=== PATIENT | female | born 1930 | race African-American/Black ===

== ENCOUNTER 2018-07-03 09:53 | Inpatient (IN) | payer MEDICARE, MEDICAID ==
[~2018-07-03] VITALS: Ht 160 cm; Wt 88.5 kg
[2018-07-03] MEDS ORDERED: KETOROLAC 30MG/ML VIAL IV STA (12:01)
[2018-07-03] MEDS ORDERED: SODIUM CHLORIDE 0.9% 1,000 ML IV ONE (12:01)
[2018-07-03] MEDS ORDERED: ALBUTEROL (0.083%) 2.5MG/3ML NEB HHN ONE (12:15)
[2018-07-03 13:11] LABS: CHLORIDE 100 mEq/L (98-107)
[2018-07-03 13:22] LABS: BASOPHILS % 0.5 % (0.0-2.0); EOSINOPHILS % 0.4 % (0.0-5.0); HEMATOCRIT. 53.3 % (36.0-48.0); HEMOGLOBIN. 17.2 g/dL (12.0-16.0); LYMPHOCYTES % 21.1 % (20.0-50.0); MEAN CORPUSCULAR HEMOGLOBIN 29.2 pg (28.0-32.0); MEAN CORPUSCULAR VOLUME 90.5 fL (81.0-99.0); MEAN PLATELET VOLUME 8.7 fl (7.4-10.4); MONOCYTES % 11.1 % (2.0-8.0); NEUTROPHILS % 66.9 % (40.0-76.0); PLATELET 156 x1000/uL (130-400); RED BLOOD CELL COUNT 5.89 mill/uL (4.2-5.4); RED CELL DISTRIBUTION WIDTH 15.4 % (11.6-14.6)
[2018-07-03] MEDS ORDERED: IOHEXOL-300 100 ML BOTTLE ONE (16:01)
[2018-07-03] MEDS ORDERED: LEVOFLOXACIN 750MG PREMIX 150 ML IV ONE (16:30)
[2018-07-03] MEDS ORDERED: ACETAMINOPHEN 325MG TABLET PO PRN ×2 (17:00→21:45)
[2018-07-03 17:22] LABS: CLARITY URINE TURBID (CLEAR); COLOR URINE YELLOW (YELLOW); KETONES URINE TRACE (NEGATIVE); LEUKOCYTE ESTERASE URINE 3+ (NEGATIVE); NITRITE URINE NEGATIVE (NEGATIVE); OCCULT BLOOD URINE 3+ (NEGATIVE); PROTEIN URINE 1+ (NEGATIVE); SPECIFIC GRAVITY URINE 1.043 (1.005-1.030)
[2018-07-03] MEDS ORDERED: LEVOFLOXACIN 500MG PREMIX 100 ML IV SCH (20:15)
[2018-07-03] MEDS ORDERED: ONDANSETRON HCL 4MG/2ML INJ IV PRN (20:15)
[2018-07-03] MEDS ORDERED: MAGNESIUM/ALUMINUM HYDROXIDE/SIMETHICONE 30ML UDC PO PRN (20:15)
[2018-07-03] MEDS ORDERED: ACETAMINOPHEN 650MG/20.3ML UDC GT PRN (20:15)
[2018-07-03] MEDS ORDERED: GUAIFENESIN 200MG/10ML SUGAR FREE UDC PO PRN (20:15)
[2018-07-03] MEDS: DEXT 5%/0.45% NACL 1000ML 1,000 ML IV SCH (20:22)
[2018-07-03] MEDS ORDERED: ATORVASTATIN CALCIUM 40MG TABLET PO SCH (21:00)
[2018-07-03] MEDS ORDERED: OXYBUTYNIN CHLORIDE 5MG TABLET PO SCH (21:00)
[2018-07-03 21:30] VITALS: BP 103/73
[2018-07-03] MEDS ORDERED: ERGO400C MT (23:39)
[2018-07-03] MEDS ORDERED: TIOT18CA3 INH (23:39)
[2018-07-03] MEDS ORDERED: SIMV5TAB53 MT (23:39)
[2018-07-03] MEDS ORDERED: ASPI-1159 MT (23:40)
[2018-07-03] MEDS ORDERED: POLY17PO3 MT (23:40)
[2018-07-04] VITALS: BP 124/89
[2018-07-04] MEDS: IPRATROPIUM/ALBUTEROL 0.5-3(2.5)MG/3ML NEB HHN SCH ×5 (01:16→16:00)
[2018-07-04] MEDS ORDERED: IPRATROPIUM/ALBUTEROL 0.5-3(2.5)MG/3ML NEB ONE (01:20)
[2018-07-04 06:19] LABS: CHLORIDE 104 mEq/L (98-107)
[2018-07-04 06:27] LABS: HDL CHOLESTEROL 38 mg/dL (40-59); LDL CHOLESTEROL 89 mg/dL (5-100)
[2018-07-04 06:32] LABS: BASOPHILS % 0.3 % (0.0-2.0); EOSINOPHILS % 0.5 % (0.0-5.0); HEMATOCRIT. 43.1 % (36.0-48.0); HEMOGLOBIN. 13.9 g/dL (12.0-16.0); LYMPHOCYTES % 18.7 % (20.0-50.0); MEAN CORPUSCULAR VOLUME 90.1 fL (81.0-99.0); NEUTROPHILS % 69.5 % (40.0-76.0); PLATELET 167 x1000/uL (130-400); RED BLOOD CELL COUNT 4.79 mill/uL (4.2-5.4); RED CELL DISTRIBUTION WIDTH 15.3 % (11.6-14.6)
[2018-07-04 08:00] VITALS: BP 132/67
[2018-07-04] MEDS: OXYBUTYNIN CHLORIDE 5MG TABLET PO SCH ×2 (08:34→20:02)
[2018-07-04] MEDS: POLYETHYLENE GLYCOL 3350 (17GM) 1 DOSE PACK PO SCH (08:34)
[2018-07-04 08:44] LABS: BG BASE EXCESS 1.1 mmol/L (-2.0-2.0); BG CARBOXYHEMOGLOBIN 0.7 % (0.5-1.5); BG DEOXYHEMOGLOBIN 3.9 % (0.0-5.0); BG FRACTION INSPIRED OXYGEN 28; BG HCO3 ACT 28.1 mmol/L (22.0-26.0); BG METHEMOGLOBIN 0.4 % (0.0-1.5); BG OXYGEN SATURATION 96.1 % (92.0-98.5); BG PH 7.334 (7.350-7.450); BG PO2 82.1 mmHg (75.0-100.0); BG SAMPLE SITE RIGHT RADIAL; BG TOTAL HEMOGLOBIN 14.5 g/dL (12.0-18.0); BG VENT MODE NASAL CANNULA
[2018-07-04] MEDS ORDERED: POLYETHYLENE GLYCOL 3350 (17GM) 1 DOSE PACK PO SCH (09:00)
[2018-07-04 11:56] VITALS: BP 126/67
[2018-07-04 16:00] VITALS: BP 111/50
[2018-07-04] MEDS ORDERED: LEVOFLOXACIN 500MG PREMIX 100 ML IV SCH (18:00)
[2018-07-04] MEDS: LEVOFLOXACIN 250MG TABLET PO SCH (18:08)
[2018-07-04 20:00] VITALS: BP 122/73
[2018-07-04] MEDS: DEXT 5%/0.45% NACL 1000ML 1,000 ML IV SCH ×4 (20:03→21:00)
[2018-07-04] MEDS: ATORVASTATIN CALCIUM 40MG TABLET PO SCH (20:03)
[2018-07-04] MEDS: GUAIFENESIN 200MG/10ML SUGAR FREE UDC PO PRN (20:34)
[2018-07-04] MEDS ORDERED: THROAT LOZENGES-BENZOCAINE/MENTH/CETYLPYRD CL LOZENGES MM PRN (21:00)
[2018-07-05] VITALS: BP 100/79
[2018-07-05] MEDS: IPRATROPIUM/ALBUTEROL 0.5-3(2.5)MG/3ML NEB HHN SCH ×7 (01:25→23:41)
[2018-07-05] MEDS: ACETYLCYSTEINE 100MG/ML 10% VIAL 4ML INH SCH ×4 (01:25→23:42)
[2018-07-05 04:00] VITALS: BP 101/50
[2018-07-05] MEDS: GUAIFENESIN 200MG/10ML SUGAR FREE UDC PO PRN ×2 (05:24→20:35)
[2018-07-05 08:00] VITALS: BP 137/78
[2018-07-05] MEDS: LEVOFLOXACIN 250MG TABLET PO SCH (08:25)
[2018-07-05] MEDS: OXYBUTYNIN CHLORIDE 5MG TABLET PO SCH ×2 (08:25→20:47)
[2018-07-05] MEDS: POLYETHYLENE GLYCOL 3350 (17GM) 1 DOSE PACK PO SCH (09:06)
[2018-07-05] MEDS: DEXT 5%/0.45% NACL 1000ML 1,000 ML IV SCH ×2 (09:39→20:47)
[2018-07-05 12:00] VITALS: BP 123/54
[2018-07-05 12:41] LABS: BG BASE EXCESS 3.9 mmol/L (-2.0-2.0); BG CARBOXYHEMOGLOBIN 0.7 % (0.5-1.5); BG DEOXYHEMOGLOBIN 11.6 % (0.0-5.0); BG FRACTION INSPIRED OXYGEN 21; BG HCO3 ACT 29.8 mmol/L (22.0-26.0); BG METHEMOGLOBIN 0.3 % (0.0-1.5); BG OXYGEN SATURATION 88.3 % (92.0-98.5); BG OXYHEMOGLOBIN 87.4 % (94.0-97.0); BG PCO2 50.1 mmHg (35.0-45.0); BG PH 7.392 (7.350-7.450); BG PO2 49.7 mmHg (75.0-100.0); BG SAMPLE SITE RIGHT RADIAL; BG TOTAL HEMOGLOBIN 13.3 g/dL (12.0-18.0); BG VENT MODE ROOM AIR
[2018-07-05 15:49] VITALS: BP 122/63
[2018-07-05] MEDS ORDERED: LEVOFLOXACIN 250MG TABLET PO SCH (18:00)
[2018-07-05 20:00] VITALS: BP 139/69
[2018-07-05] MEDS: ACETAMINOPHEN 325MG TABLET PO PRN (20:35)
[2018-07-05] MEDS: ATORVASTATIN CALCIUM 40MG TABLET PO SCH (20:47)
[2018-07-06] VITALS: BP 116/64
[2018-07-06] MEDS: IPRATROPIUM/ALBUTEROL 0.5-3(2.5)MG/3ML NEB HHN SCH ×2 (02:59→10:08)
[2018-07-06 04:00] VITALS: BP 138/72
[2018-07-06 08:00] VITALS: BP 138/69
[2018-07-06] MEDS ORDERED: ASPIRIN 325MG TABLET PO SCH (09:00)
[2018-07-06] MEDS ORDERED: ASPIRIN 325MG TABLET PO ONE (09:00)
[2018-07-06] MEDS: OXYBUTYNIN CHLORIDE 5MG TABLET PO SCH ×2 (09:00→09:13)
[2018-07-06] MEDS: POLYETHYLENE GLYCOL 3350 (17GM) 1 DOSE PACK PO SCH (09:13)
[2018-07-06] MEDS: ACETAMINOPHEN 325MG TABLET PO PRN (09:13)
[2018-07-06] MEDS: LEVOFLOXACIN 250MG TABLET PO SCH (09:13)
[2018-07-06] MEDS ORDERED: OXYB5TAB11 PO ×2 (09:17→11:30)
[2018-07-06] MEDS: ACETYLCYSTEINE 100MG/ML 10% VIAL 4ML INH SCH (10:08)
[2018-07-06 10:37] VITALS: BP 138/69
[2018-07-06 12:00] VITALS: BP 128/77
== END 2018-07-06 13:15 | disposition home health service (06) | DRG 871 ==
LOC: ER 09:53 → EDBEDREQTM 16:57 → EDBEDREQ 16:57 → ENRESERV 21:10 → ER 21:40 → 6EST 22:53
PROVIDERS: ADMIT Specialist; ATTEND Specialist
DX: A41.9 Sepsis, unspecified organism (principal); J18.9 Pneumonia, unspecified organism; N39.0 Urinary tract infection, site not specified; E44.1 Mild protein-calorie malnutrition; J96.10 Chronic respiratory failure, unspecified whether with hypoxia or hypercapnia; J44.0 Chronic obstructive pulmonary disease with (acute) lower respiratory infection; J84.9 Interstitial pulmonary disease, unspecified; M51.37 Other intervertebral disc degeneration, lumbosacral region; Z96.659 Presence of unspecified artificial knee joint; J20.9 Acute bronchitis, unspecified; E86.0 Dehydration; E78.5 Hyperlipidemia, unspecified; E78.00 Pure hypercholesterolemia, unspecified; G89.29 Other chronic pain; Z80.9 Family history of malignant neoplasm, unspecified; Z83.3 Family history of diabetes mellitus; Z84.1 Family history of disorders of kidney and ureter; Z90.49 Acquired absence of other specified parts of digestive tract; Z90.710 Acquired absence of both cervix and uterus; Z99.81 Dependence on supplemental oxygen; Z88.5 Allergy status to narcotic agent; Z68.34 Body mass index [BMI] 34.0-34.9, adult; I95.9 Hypotension, unspecified
CPT/HCPCS: 36415; 36600; 71045; 74177; 80061; 82270; 82375; 82533; 82652; 82805; 83036; 83735; 83880; 84484; 87077; 87186; 87804; 93005; 93970; 94640; 96361; 96365; 96375; 99285; J1885; J1956; J3490; J7030; J7608; J7611; J7620; Q9967